=== PATIENT | female | born 1980 | race Caucasian/White ===

== ENCOUNTER → 2017-01-12 | Outpatient (CLI) | payer OTHER ==
[~2017-01-12] MED LIST: ASPI-390 PO; CZR50 PO; NAPR1TAB9 PO; OMEP40CA41 PO; ONDA8TAB13 SL; OPTIRAY 320 IV PRN; OXYC-57 PO
--- NOTE | 2017-01-12 09:11 | DIAGNOSTIC IMAGING REPORT ---
CT OF THE ABDOMEN WITH IV AND ORAL CONTRAST CT DOSE: 361.61 mGy.cm CLINICAL HISTORY: Abdominal pain. Gallbladder symptoms. Possible hiatal hernia. TECHNIQUE: Axial images of the abdomen were obtained following intravenous injection of 93 cc Optiray 320 IV. Oral contrast was ministered. COMPARISON STUDY: None. 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 No hiatal hernia is identified by CT. The liver, spleen, right adrenal gland and pancreas are normal. There is no biliary or pancreatic ductal dilatation. The gallbladder is not distended. A 2.4 cm low-attenuation nodule likely arises from the left adrenal gland. Less likely, this could reflect a left renal lesion. 2 water attenuation left renal lesions measure up to 1.8 cm and reflect cysts. There is mild right collecting system dilatation. No calculi are identified within visualized portions of the right ureter. The caliber of visualized portions of the right ureter is normal. There is a small fat-containing umbilical hernia. There is no abdominal lymphadenopathy or ascites. Caliber and wall thickness of visualized small and large bowel are normal. No suspicious skeletal lesions are identified. IMPRESSION: 1. No acute process within the abdomen. 2. Mild right collecting system dilatation. While nonspecific, this could reflect a mild UPJ type obstruction. No proximal right ureteral calculus. 3. Fat-containing Morgagni hernia. No hiatal hernia by CT. 4. 2.4 cm suspected left adrenal lesion. Less likely, this could reflect a renal lesion. This measures just above water attenuation. An adrenal adenoma is favored although this lesion is indeterminate and a follow-up adrenal protocol CT in 6 months is recommended. Electronically signed by: Akira Khanna M.D. 01/12/2017 9:09 AM Dictated Date/Time: 01/12/2017 9:00 AM
== END | disposition home or self-care (01) ==
LOC: C.CTS 07:56
PROVIDERS: ATTEND Physician Assistant
DX: R10.9 Unspecified abdominal pain (principal)

== ENCOUNTER → 2017-02-10 | Outpatient (CLI) | payer OTHER ==
[~2017-02-10] MED LIST changes: +FUROSEMIDE INJ 10 MG/ML 2 ML VIAL IV ONE; -OPTIRAY 320 IV PRN
--- NOTE | 2017-02-11 08:48 | DIAGNOSTIC IMAGING REPORT ---
RENAL SCAN DIURETIC (MAG 3) CLINICAL HISTORY: Hydronephrosis. COMPARISON STUDY: CT of the abdomen and January 12, 2017. TECHNIQUE: 7.4 mCi of technetium 99m MAG3 was injected IV at 12:08 PM on February 10, 2017. Immediately following injection, posterior imaging was performed to obtain flow images. Function curves were also obtained. 20 mg of Lasix was administered IV according to protocol. FINDINGS: Flow to both kidneys is symmetric. Split function was 55% left kidney and 45% right kidney. There is mild accumulation of radiotracer within the right renal pelvis. There is excretion into the right ureter prior to Lasix administration. There was no evidence of a mechanical obstruction. Time to half max for the left kidney was 11.7 minutes and time to half max for the right kidney was 14.9 minutes. IMPRESSION: 1. Split function of 55% left kidney and 45% right kidney. 2. Slightly patulous right collecting system without evidence for a significant obstruction. Electronically signed by: Akira Khanna M.D. 02/11/2017 8:47 AM Dictated Date/Time: 02/11/2017 8:42 AM
== END | disposition home or self-care (01) ==
LOC: C.NUCL 11:29
PROVIDERS: ATTEND Urology
DX: N13.30 Unspecified hydronephrosis (principal)

== ENCOUNTER 2017-02-24 14:55 | Emergency (ER) | payer OTHER ==
[~2017-02-24] VITALS: Ht 162.6 cm; Wt 75.2 kg
[~2017-02-24 14:55] MED LIST changes: -FUROSEMIDE INJ 10 MG/ML 2 ML VIAL IV ONE; -ONDA8TAB13 SL; -OXYC-57 PO
[2017-02-24 14:59] VITALS: TEMP 36.9; Ht 162.6 cm; Wt 75.2 kg
--- NOTE | 2017-02-24 15:56 | EMERGENCY ROOM VISIT NOTE ---
ED Visit Note First contact with patient: 15:09 CHIEF COMPLAINT: Left upper quadrant abdominal pain HISTORY OF PRESENT ILLNESS: This 37-year-old female patient presents to the emergency department with worsening abdominal pain over the last 2 weeks. Patient is regularly followed by general surgery as well as urology regarding several chronic issues and findings on abdominal imaging. Patient states over the last 2 weeks, she has been experiencing inability to eat, muscle aches, lethargy, redness under her eyes, and her mother feels that her skin may be turning yellow. Patient states she has been vomiting after eating food on occasion. She states this is worse when she eats meat, especially red meat, but states on occasion other things to make her feel ill. States she has routinely been able to drink Coke and iced tea, and did successfully eat 1/2 of an [place] muffin this morning without vomiting. She states she did experience nausea at that time. Patient states pains initiate in the left upper quadrant, under her left rib, and radiate around to the back in the same location. Patient states the pains are sharp and intense, and make her sick to her stomach. She states they last up to one hour to time. She rates pain 7/10. Patient states that one point last week she vomited chunks, and black leaves. She states on that day, she had eaten macaroni salad prior to the emesis. Patient is on Naprosyn 440 mg by mouth every 8 hours for pain related to thoracic outlet syndrome, and states she has been taking this medication regularly. Patient recently had a CT scan of her abdomen completed, as well as a nuclear scan of her kidneys. She states she last had an EGD performed "a few months ago". She states at that time she was told she had undigested food in her stomach, but denies ulcers or other abnormal findings on the scope. Patient denies diarrhea, but does report constipation, which she describes as having to push in order to move her bowels. She states she occasionally goes to to 3 days without having a bowel movement. This has not been an issue during this episode of worsening discomfort. Patient states she did call her surgeon, and was advised to seek care in the emergency department due to worsening symptoms. She states she was offered an appointment for 1 week, but felt that she was unable to wait. Symptoms have been progressively worsening over the past 2 weeks, however she states she was able to work today. as she is only experiencing severe pain intermittently. Patient denies fevers, chills, headache, dizziness, lightheadedness. REVIEW OF SYSTEMS: A 10-system review of systems was performed with positives and pertinent negatives listed in the history of present illness. All other systems were reviewed and are negative. ALLERGIES: Penicillin, varenicline MEDICATIONS: Excedrin Migraine, omeprazole, losartan, naproxen PMH: Headaches, GERD, hypertension, thoracic outlet syndrome, multiple GI disorders as outlined in HPI SOCIAL HISTORY: She lives locally with her family. She does admit to smoking approximately one pack per day and denies alcohol or drug use. PHYSICAL EXAM: VITALS: Vitals are noted on the nurse's note and reviewed by myself. Vital signs stable. GENERAL: 37-year-old female, in no acute distress, nondiaphoretic, well- developed well-nourished. HEAD - Normocephalic, atraumatic EYES - PERRL with EOMI bilaterally. Sclera anicteric. Palpebral conjunctiva pink and moist with no injection noted. EARS - No deformities of external structures noted on gross examination bilaterally. No pain elicited with palpation of the tragus bilaterally. External auditory canals without discharge or otorrhea. Tympanic membranes pearly watts without retraction or bulging. No fluid or purulent material visualized behind the TM. Handle of malleus, umbo, cone of light, pars tensa/ flaccid all easily visualized. NOSE - Midline and without cyanosis. No epistaxis or purulent drainage noted. Septum midline without deviation or septal hematoma noted. MOUTH/OROPHARYNX - Without perioral cyanosis. Buccal mucosa pink and moist and without leukoplakia. Tongue midline with equal elevation of palate bilaterally. No tonsillar hypertrophy, erythema, or exudates noted. good dentition noted. NECK - Neck with FROM. Supple to palpation. No nuchal rigidity. No lymphadenopathy LUNGS - Chest wall symmetric without accessory muscle use, intercostals retractions, or central cyanosis. Normal vesicular breath sounds CTA B/L. No wheezes, rales, or rhonchi appreciated. CARDIAC - RRR with S1/S2. No murmur, rubs, or gallops appreciated. ABDOMEN - Abdominal contour normal without pulsations or visible masses. Negative [place]'s or Silveira Hollis's Signs. BS normoactive all four quadrants. LUQ, LLQ tenderness to light and deep palpation appreciated. Pt. also c/o LLQ tenderness on palpation of the RLQ. mild guarding. no Rebound Tenderness. negative rovsing's. Negative Olvera's. No palpable masses, hepatosplenomegaly, or ascites noted. EXTREMITIES - No clubbing or peripheral cyanosis. No pretibial edema present. +3/5 radial and dorsalis pedis pulses palpated throughout. +5/5 strength noted in UE/LE bilaterally. SKIN - [place], warm, dry. No cyanosis or diaphoresis noted. No jaundice appreciated on examination. NEUROLOGIC - Cranial nerves II through XII grossly intact. Sensory intact to light touch throughout. PSYCH - A&Ox3 and cooperates fully with examiner. Pt is very pleasant and interacts well with examiner. RADIOLOGY Results: Pelvic ultrasound, reviewed by radiologist, indicated: Uterus: The uterus is normal in size and echotexture, measuring 7.9 x 3.9 x 5.3 cm. A calcified fundal fibroid is incidentally noted and measures up to 1.1 cm. A section scar is identified. Endometrium: The endometrium is normal in appearance, and the endometrial stripe is normal in thickness measuring up to 0.5 cm. Ovaries: The ovaries are normal in size and morphology. The right ovary measures 3.0 x 2.1 x 1.8 cm and the left ovary measures 4.6 x 3.0 x 2.9 cm. Small ovarian follicles are incidentally noted. Normal Doppler waveforms are shown within both ovaries. Pelvis: There is no free fluid in the cul-de-sac. No concerning adnexal lesion is seen. IMPRESSION: 1. No acute sonographic abnormality is identified in the pelvis. 2. Small calcified fundal fibroid. Retroperitoneal ultrasound, reviewed by radiologist, indicated: FINDINGS: Kidneys: The kidneys are normal in size and echotexture. The right kidney measures 12.5 x 4.2 x 5.2 cm and the left kidney measures 11.4 x 4.3 x 5.7 cm. An extrarenal pelvis is again seen on the right and there is fullness of the right renal collecting system. There is no definite hydronephrosis. No shadowing renal calculi are identified. There are 2 cysts identified in the left kidney measuring up to 1.8 cm. These were also seen by CT on 01/12/2017. There is no sonographic evidence of solid renal mass lesion. No perinephric fluid is identified. Bladder: The bladder is normal in appearance. Bilateral ureteral jets were seen. IMPRESSION: 1. The kidneys are normal in size and without hydronephrosis. Fullness of the right renal collecting system is similar to prior studies. 2. The bladder was normal as visualized. EMERGENCY DEPARTMENT COURSE: Initial labs ordered, patient placed on cardiac cath rn, and Pelvic and retroperitoneal US ordered with results reviewed by radiologist. Results of ultrasound as noted previously. CBC indicates slightly decreased RBC count, however, no anemia, leukocytosis, or thrombocytopenia noted. Urinalysis indicated slight red blood cells, however no obvious infection. Urine test negative. BMP without significant abnormalities. AST/ALT/lipase all negative for significant abnormality as well. Patient did have recent abdominal CT scan performed, as well as a nuclear study of kidneys within the past 1-2 months. Results were reviewed with patient by her specialists. I also reviewed the results of these studies in the Emergency Department today. Pt. states she did begin feeling slightly better after normal saline bolus of 500mg. Patient is pleased with normal results, however is frustrated with no answer for her discomfort at this time. Patient is pleased with her care in the emergency department, and states she will continue to follow up outpatient with her regular providers. Pt. states she does have an appointment scheduled for next with her surgeon. She was discharged home in good condition. DIAGNOSIS: Left upper quadrant abdominal pain, uterine fibroid DIFFERENTIAL DIAGNOSIS: Gastric ulcer, acute pancreatitis, acute cholecystitis, splenic process, Crohn's disease, irritable bowel syndrome, mesenteric ischemia , colitis, diverticulitis, malignancy, hydronephrosis, ovarian cyst, GI bleed, acute gastroenteritis, intestinal obstruction, and others DISCHARGE INSTRUCTIONS & TREATMENT: You have been treated in the Emergency Department your Abdominal Pain. Laboratory results and imaging studies have ruled out any emergent causes for your abdominal pain which would warrant admission or surgery. You have been prescribed Zofran to be used for any nausea or vomiting. Take as prescribed. For pain control, you can use the following ygrp-dym-ardpjpa medicines (if >12 yo): - Regular strength (325mg/tab) Tylenol (acetaminophen) 2 tabs every 4-6 hours as needed. Do not exceed 12 tablets in a 24 hour period. Avoid taking more than 4 grams (4000 mg) of Tylenol per day. This includes any other sources of acetaminophen you may take on a regular basis. - Regular strength (200 mg/tab) Advil (ibuprofen) 1-2 tabs every 4-6 hours as needed. Do not exceed a dose of 3200 mg per day. Drink plenty of water and stay well hydrated. I recommended an initial clear liquid diet due to constipation and worsening abdominal discomfort after eating. He should slowly add in soft foods after 1- 3 days of clear liquids. Consider MiraLAX, one capful daily if you continue to experience constipation. As with any trip to the Emergency Department, you should follow-up with your Primary Care Provider from today's visit. In addition, you should follow up with your general surgeon at your regularly scheduled appointment in 1 week for recheck of today's symptoms and further evaluation and workup. Return to the emergency department if your symptoms persist despite treatment plan outlined above or if the following symptoms occur: increased fevers, chills , worsening nausea/vomiting, blood in your stool or urine. Problem List Medical Problems: (1) Ankle sprain Status: Resolved (2) Dentalgia Status: Resolved (3) Essential (Primary) Hypertension Status: Chronic (4) Foot sprain Status: Resolved (5) Hiatal hernia Status: Chronic (6) Migraines Status: Chronic (7) Thumb tendonitis Status: Resolved (8) Thumb tendonitis Status: Resolved Current/Historical Medications Scheduled Losartan Potassium (Losartan Potassium), 50 MG PO DAILY Omeprazole (Prilosec), 40 MG PO DAILY Ondansetron Odt (Zofran Odt), 8 MG SL Q6H Scheduled PRN Vcgqpwb-Whyqnnvstwjdg-Hzsqvbrw (Excedrin Migraine), 1 TABLET PO UD PRN for Migraine Naproxen (Aleve), 440 MG PO Q8 PRN for Pain Allergies Coded Allergies: Varenicline (Verified Allergy, Unknown, UNKNOWN, 02/24/17) Penicillins (Verified Adverse Reaction, Unknown, HIVES, 02/24/17) Vital Signs Date Time Temp Pulse Resp B/P (MAP) Pulse Ox O2 Delivery O2 Flow Rate FiO2 02/24/17 19:04 84 16 142/90 99 02/24/17 17:25 84 16 140/101 98 02/24/17 14:59 36.9 110 18 148/79 100 Room Air Laboratory Results 02/24/17 15:40 Red Blood Count 4.00, Mean Corpuscular Volume 97.3, Mean Corpuscular Hemoglobin 31.5, Mean Corpuscular Hemoglobin Concent 32.4, Mean Platelet Volume 9.4, Neutrophils (%) (Auto) 60.9, Lymphocytes (%) (Auto) 32.0, Monocytes (%) (Auto) 5.6, Eosinophils (%) (Auto) 1.1, Basophils (%) (Auto) 0.3, Neutrophils # (Auto) 5.70, Lymphocytes # (Auto) 2.99, Monocytes # (Auto) 0.52, Eosinophils # (Auto) 0.10, Basophils # (Auto) 0.03 02/24/17 15:40 Test 02/24/17 00:00 02/24/17 15:29 02/24/17 15:40 Urine Color YELLOW Urine Appearance CLEAR (CLEAR) Urine pH 5.5 (4.5-7.5) Urine Specific [place] 1.022 (1.000-1.030) Urine Protein NEG (NEG) Urine Glucose (UA) NEG (NEG) Urine Ketones NEG (NEG) Urine Occult Blood 2+ (NEG) Urine Nitrite NEG (NEG) Urine Bilirubin NEG (NEG) Urine Urobilinogen NEG (NEG) Urine Leukocyte Esterase NEG (NEG) Urine WBC (Auto) 1-5 /hpf (0-5) Urine RBC (Auto) 10-30 /hpf (0-4) Urine Hyaline Casts (Auto) 1-5 /lpf (0-5) Urine Epithelial Cells (Auto) >30 /lpf (0-5) Urine Bacteria (Auto) 1+ (NEG) White Blood Count 9.35 K/uL (4.8-10.8) Red Blood Count 4.00 M/uL (4.2-5.4) Hemoglobin 12.6 g/dL (12.0-16.0) Hematocrit 38.9 % (37-47) Mean Corpuscular Volume 97.3 fL (80-100) Mean Corpuscular Hemoglobin 31.5 pg (25-34) Mean Corpuscular Hemoglobin Concent 32.4 g/dl (32-36) Platelet Count 257 K/uL (130-400) Mean Platelet Volume 9.4 fL (7.4-10.4) Neutrophils (%) (Auto) 60.9 % Lymphocytes (%) (Auto) 32.0 % Monocytes (%) (Auto) 5.6 % Eosinophils (%) (Auto) 1.1 % Basophils (%) (Auto) 0.3 % Neutrophils # (Auto) 5.70 K/uL (1.4-6.5) Lymphocytes # (Auto) 2.99 K/uL (1.2-3.4) Monocytes # (Auto) 0.52 K/uL (0.11-0.59) Eosinophils # (Auto) 0.10 K/uL (0-0.5) Basophils # (Auto) 0.03 K/uL (0-0.2) RDW Standard Deviation 46.1 fL (36.4-46.3) RDW Coefficient of Variation 12.9 % (11.5-14.5) Immature Granulocyte % (Auto) 0.1 % Immature Granulocyte # (Auto) 0.01 K/uL (0.00-0.02) Anion Gap 8.0 mmol/L (3-11) Est Creatinine Clear Calc Drug Dose 98.7 ml/min Estimated GFR () 114.5 Estimated GFR (Non- 98.8 BUN/Creatinine Ratio 7.5 (10-20) Calcium Level 9.3 mg/dl (8.5-10.1) Total Bilirubin 0.3 mg/dl (0.2-1) Direct Bilirubin < 0.1 mg/dl (0-0.2) Aspartate Amino Transf (AST/SGOT) 10 U/L (15-37) Alanine Aminotransferase (ALT/SGPT) 13 U/L (12-78) Alkaline Phosphatase 75 U/L (45-117) Total Protein 6.6 gm/dl (6.4-8.2) Albumin 3.9 gm/dl (3.4-5.0) Lipase 141 U/L (73-393) Medications Administered Medications (Trade) Dose Ordered Sig/Tristan Route Start Time Stop Time Status Last Admin Dose Admin Sodium Chloride 500 ml @ 999 mls/hr Q31M STAT IV 02/24/17 17:23 02/24/17 17:53 DC 02/24/17 17:41 999 MLS/HR Departure Information Impression Primary Impression: Abdominal pain Additional Impression: Uterine fibroid Dispostion Home / Self-Care Condition GOOD Prescriptions Ondansetron Odt (ZOFRAN ODT) 8 Mg Tab 8 MG SL Q6H for 10 Days, #40 TAB Prov: Sarah Torres PA-C 02/24/17 Referrals Matthew Zamudio M.D. (PCP) Patient Instructions ED Abdominal Pain Unkn Cause, [facility] Additional Instructions You have been treated in the Emergency Department your Abdominal Pain. Laboratory results and imaging studies have ruled out any emergent causes for your abdominal pain which would warrant admission or surgery. You have been prescribed Zofran to be used for any nausea or vomiting. Take as prescribed. For pain control, you can use the following wlae-ufc-alfnuty medicines (if >12 yo): - Regular strength (325mg/tab) Tylenol (acetaminophen) 2 tabs every 4-6 hours as needed. Do not exceed 12 tablets in a 24 hour period. Avoid taking more than 4 grams (4000 mg) of Tylenol per day. This includes any other sources of acetaminophen you may take on a regular basis. - Regular strength (200 mg/tab) Advil (ibuprofen) 1-2 tabs every 4-6 hours as needed. Do not exceed a dose of 3200 mg per day. Drink plenty of water and stay well hydrated. I recommended an initial clear liquid diet due to constipation and worsening abdominal discomfort after eating. He should slowly add in soft foods after 1- 3 days of clear liquids. Consider MiraLAX, one capful daily if you continue to experience constipation. As with any trip to the Emergency Department, you should follow-up with your Primary Care Provider from today's visit. In addition, you should follow up with your general surgeon at your regularly scheduled appointment in 1 week for recheck of today's symptoms and further evaluation and workup. Return to the emergency department if your symptoms persist despite treatment plan outlined above or if the following symptoms occur: increased fevers, chills , worsening nausea/vomiting, blood in your stool or urine. Problem Qualifiers Primary Impression: Abdominal pain Abdominal location: left upper quadrant Qualified Codes: R10.12 - Left upper quadrant pain Additional Impression: Uterine fibroid Uterine leiomyoma location: unspecified location Qualified Codes: D25.9 - Leiomyoma of uterus, unspecified
[2017-02-24 15:58] LABS: URINE APPEARANCE CLEAR (CLEAR); URINE BILIRUBIN NEG (NEG); URINE COLOR YELLOW; URINE EPITHELIAL CELL AUTO >30 /lpf (0-5); URINE NITRITE NEG (NEG); URINE PH 5.5 (4.5-7.5); URINE SPECIFIC GRAVITY 1.022 (1.000-1.030); UROBILINOGEN NEG (NEG); ZZUR CULT IF INDIC CLEAN CATCH YES
[2017-02-24 15:58] LABS: BASO % 0.3 %; BASO ABS # 0.03 K/uL (0-0.2); COMPLETE YES; EOS % 1.1 %; HEMATOCRIT 38.9 % (37-47); IG% 0.1 %; LYMPH ABS # 2.99 K/uL (1.2-3.4); MEAN CELL VOLUME 97.3 fL (80-100); MEAN CORPUSCULAR HEMOGLOBIN 31.5 pg (25-34); MEAN CORPUSCULAR HGB CONC 32.4 g/dl (32-36); MEAN PLATELET VOLUME 9.4 fL (7.4-10.4); MONO % 5.6 %; NEUT % 60.9 %; PLATELET COUNT 257 K/uL (130-400); WHITE BLOOD COUNT 9.35 K/uL (4.8-10.8)
[2017-02-24 16:00] LABS: MANUAL MICROSCOPIC REQUIRED? NO; REVIEW REQ? NO
[2017-02-24 16:31] LABS: ALT/SGPT 13 U/L (12-78); BLOOD UREA NITROGEN 6 mg/dl (7-18); BUN/CREATININE RATIO 7.5 (10-20); CALCIUM 9.3 mg/dl (8.5-10.1); CARBON DIOXIDE 25 mmol/L (21-32); CHLORIDE 107 mmol/L (98-107); CREATININE 0.76 mg/dl (0.60-1.20); GLUCOSE 83 mg/dl (70-99); POTASSIUM 3.6 mmol/L (3.5-5.1); SODIUM 140 mmol/L (136-145)
[2017-02-24 16:34] LABS: ALKALINE PHOSPHATASE 75 U/L (45-117); AST/SGOT 10 U/L (15-37)
[2017-02-24] MEDS ORDERED: SODIUM CHLORIDE 0.9% 500ML 500 ML IV STA (17:23)
--- NOTE | 2017-02-24 17:26 | DIAGNOSTIC IMAGING REPORT ---
ULTRASOUND KIDNEYS AND BLADDER CLINICAL HISTORY: Left flank pain. COMPARISON STUDY: Abdominal CT dated 01/12/2017. Nuclear renal scan dated 02/10/2017. TECHNIQUE: Real-time, grayscale, and color flow sonography of the kidneys and bladder is performed. Images are reviewed in the transverse and longitudinal planes. FINDINGS: Kidneys: The kidneys are normal in size and echotexture. The right kidney measures 12.5 x 4.2 x 5.2 cm and the left kidney measures 11.4 x 4.3 x 5.7 cm. An extrarenal pelvis is again seen on the right and there is fullness of the right renal collecting system. There is no definite hydronephrosis. No shadowing renal calculi are identified. There are 2 cysts identified in the left kidney measuring up to 1.8 cm. These were also seen by CT on 01/12/2017. There is no sonographic evidence of solid renal mass lesion. No perinephric fluid is identified. Bladder: The bladder is normal in appearance. Bilateral ureteral jets were seen. IMPRESSION: 1. The kidneys are normal in size and without hydronephrosis. Fullness of the right renal collecting system is similar to prior studies. 2. The bladder was normal as visualized. Electronically signed by: Rohan Torrez M.D. 02/24/2017 5:24 PM Dictated Date/Time: 02/24/2017 5:21 PM
--- NOTE | 2017-02-24 17:30 | DIAGNOSTIC IMAGING REPORT ---
ULTRASOUND OF THE PELVIS CLINICAL HISTORY: Left pelvic pain. COMPARISON STUDY: Pelvic ultrasound dated 03/01/2013. Pelvic CT dated 01/12/2017. TECHNIQUE: Real-time, grayscale, and color flow sonography of the pelvis is performed both transabdominally and endovaginally. Images are reviewed in the transverse and longitudinal planes. FINDINGS: Uterus: The uterus is normal in size and echotexture, measuring 7.9 x 3.9 x 5.3 cm. A calcified fundal fibroid is incidentally noted and measures up to 1.1 cm. A section scar is identified. Endometrium: The endometrium is normal in appearance, and the endometrial stripe is normal in thickness measuring up to 0.5 cm. Ovaries: The ovaries are normal in size and morphology. The right ovary measures 3.0 x 2.1 x 1.8 cm and the left ovary measures 4.6 x 3.0 x 2.9 cm. Small ovarian follicles are incidentally noted. Normal Doppler waveforms are shown within both ovaries. Pelvis: There is no free fluid in the cul-de-sac. No concerning adnexal lesion is seen. IMPRESSION: 1. No acute sonographic abnormality is identified in the pelvis. 2. Small calcified fundal fibroid. Electronically signed by: Rohan Torrez M.D. 02/24/2017 5:29 PM Dictated Date/Time: 02/24/2017 5:27 PM
[2017-02-24] MEDS ORDERED: ONDA8TAB13 SL (18:50)
[2017-02-24 19:04] VITALS: BP 142/90; PULSE 84; O2SAT 99
== END 2017-02-24 19:10 | disposition home or self-care (01) ==
LOC: C.EDB 14:56
DX: R10.12 Left upper quadrant pain (principal); D25.9 Leiomyoma of uterus, unspecified; K21.9 Gastro-esophageal reflux disease without esophagitis; I10 Essential (primary) hypertension; G54.0 Brachial plexus disorders; K92.9 Disease of digestive system, unspecified; Z79.899 Other long term (current) drug therapy

== ENCOUNTER 2017-03-15 06:49 | Observation (INO) | payer OTHER ==
[2017-03-04 09:06] VITALS: BMI 28.0
--- NOTE | 2017-03-04 09:52 | PAT Medication Instructions ---
Service Date Mar 04, 2017. Current Home Medication List Teubvzs-Jmajedkjpzrno-Cjjwopfb (Excedrin Migraine), 1 TABLET PO QAM PRN for Migraine Losartan Potassium (Losartan Potassium), 50 MG PO QAM Omeprazole (Prilosec), 40 MG PO QAM Ondansetron Odt (Zofran Odt), 8 MG SL Q6H Medication Instructions For Your Scheduled Surgery - Hold the following medications the morning of surgery: Losartan Potassium (Losartan Potassium), 50 MG PO QAM Hcezpib-Zacjongtatmvx-Cjaldbja (Excedrin Migraine), 1 TABLET PO QAM PRN for Migraine (otherwise okay to continue per surgeon) - Take the following medications the morning of surgery with a sip of water OTHERWISE NOTHING TO EAT OR DRINK AFTER MIDNIGHT: Ondansetron Odt (Zofran Odt), 8 MG SL Q6H Omeprazole (Prilosec), 40 MG PO QAM - Take the following medications as scheduled the night before surgery: Ondansetron Odt (Zofran Odt), 8 MG SL Q6H If you have any questions please call us at [phone] or [phone] or [phone]
--- NOTE | 2017-03-04 10:23 | DIAGNOSTIC IMAGING REPORT ---
CHEST PREADMISSION(PA/LAT) CLINICAL HISTORY: Preoperative evaluation. COMPARISON STUDY: No previous studies for comparison. FINDINGS: Lung volumes are normal. There is no consolidation to suggest pneumonia. A density at the right cardiophrenic angle was shown to represent a Morgagni hernia on CT of January 12, 2017. There is no evidence of pulmonary edema. There is no pneumothorax or pleural effusion. Cardiomediastinal silhouette is normal. IMPRESSION: 1. No acute cardiopulmonary findings. 2. Right cardiophrenic angle density which was shown to represent a Morgagni hernia on CT of January 12, 2017. Electronically signed by: Akira Khanna M.D. 03/04/2017 10:22 AM Dictated Date/Time: 03/04/2017 10:19 AM
[2017-03-15] VITALS (8 sets, daily range): BP systolic 103–133; BP diastolic 65–87; PULSE 70–90; TEMP 36.5–37; O2SAT 96–100; Ht 162.6 cm; Wt 74.4 kg
[~2017-03-15] VITALS: Ht 162.6 cm; Wt 74.4 kg
[~2017-03-15 06:49] MED LIST changes: +LACTATED RINGER'S 1000ML 1,000 ML IV SCH; -NAPR1TAB9 PO
[2017-03-15] MEDS ORDERED: PROPOFOL IV EMULSION 10 MG/ML 20 ML VIAL IV ONE (07:19)
[2017-03-15] MEDS ORDERED: DEXAMETHASONE SOD INJ 4 MG/ML VIAL ONE (07:19)
[2017-03-15] MEDS ORDERED: LIDOCAINE HCL 2% 2 ML VIAL (20MG/ML) ONE (07:19)
[2017-03-15] MEDS ORDERED: ONDANSETRON INJ 2 MG/ML 2 ML VIAL ONE ×2 (07:19→08:21)
[2017-03-15] MEDS ORDERED: ROCURONIUM BROMIDE 10 MG/ML 5 ML VIAL ONE (07:19)
[2017-03-15] MEDS ORDERED: FENTANYL CITRATE INJ 50 MCG/1 ML 2 ML VIAL ONE ×3 (07:19→09:00)
[2017-03-15] MEDS ORDERED: GLYCOPYRROLATE INJ 0.2 MG/ML VIAL ONE (07:19)
[2017-03-15] MEDS ORDERED: NEOSTIGMINE METHYLSULFATE 5 MG/5 ML SYR ONE (07:19)
[2017-03-15] MEDS ORDERED: MIDAZOLAM HCL 1 MG/ML 2ML VIAL ONE (07:19)
--- NOTE | 2017-03-15 07:38 | History & Physical Bridge Note ---
H&P Re-Evaluation Bridge Note: I have examined the patient, reviewed the History & Physical and in the interval since the performance of the History & Physical I have noted the following changes of clinical significance: No changes noted SO at bedside
[2017-03-15] MEDS ORDERED: BACITRACIN 50000 UNIT VIAL ONE (07:51)
[2017-03-15] MEDS ORDERED: BUPIVACAINE 0.5 % 5 MG/1 ML MPF 30ML VIAL ONE (07:51)
[2017-03-15] MEDS ORDERED: LIDOCAINE/EPINEPHRINE 1% 20 ML VIAL ONE (07:52)
[2017-03-15] MEDS ORDERED: CONRAY 60% 50 ML VIAL ONE (07:52)
[2017-03-15] MEDS ORDERED: MEPERIDINE HCL 25 MG/ML CARP IV PRN (08:00)
[2017-03-15] MEDS ORDERED: EpHEDrine SULFATE INJ 50 MG/ML AMP IV PRN (08:00)
[2017-03-15] MEDS ORDERED: LABETALOL HCL IV 5 MG/ML 20ML IV PRN (08:00)
[2017-03-15] MEDS ORDERED: ONDANSETRON INJ 2 MG/ML 2 ML VIAL IV PRN ×2 (08:00→11:00)
[2017-03-15] MEDS ORDERED: ATROPINE SULFATE 0.1 MG/ML 5ML SYR IV PRN (08:00)
[2017-03-15] MEDS ORDERED: METOCLOPRAMIDE HCL INJ 5 MG/ML 2 ML VIAL ONE (08:21)
[2017-03-15] MEDS ORDERED: DiphenhydrAMINE HCL 50 MG/ML VIAL ONE (08:21)
[2017-03-15] MEDS ORDERED: MINERAL OIL LIGHT 10 ML BTL ONE (08:33)
[2017-03-15] MEDS ORDERED: HYDROmorphone INJ 2 MG/ML SYR/VIAL ONE (09:42)
[2017-03-15] MEDS ORDERED: ESMOLOL HCL 10 MG/ML 10 ML VIAL ONE (09:47)
[2017-03-15] MEDS ORDERED: MoRPHine SULFATE 4 MG/ML 1 ML CARP\\VIAL IV PRN (11:00)
[2017-03-15] MEDS ORDERED: OXYCODONE/ACETAMINOPHEN 5-325 TAB PO PRN (11:00)
[2017-03-15] MEDS ORDERED: OXYC-57 PO (11:01)
--- NOTE | 2017-03-15 11:03 | Discharge Instructions ---
Discharge Instructions Date of Service Mar 15, 2017. Admission Reason for Admission: Incarcerated Right Hernia Of Morgagnl, Abd Pain Discharge Discharge Diagnosis / Problem: laparoscopic cholecystectomy, repair of hernia Discharge Goals Goal(s): Decrease discomfort Activity Recommendations Activity Limitations: as noted below Lifting Limitations: no more than 10 pounds Shower/Bathe: no limitations (ok to shower) Driving or Machine Use: resume 3 days after discharge (if not taking Percocet) . Instructions / Follow-Up Instructions / Follow-Up Dr. Zamudio in 1 week, call [phone] if you need to schedule or have any questions Current Hospital Diet Patient's current hospital diet: Clear Liquid Diet Discharge Diet Recommended Diet: Regular Diet Procedures Procedures Performed: Laparoscopic Cholecystectomy with attempt of cholangiogram, Laparoscopic Repair with 12cm mesh of Incarcerated Right Morgagni Hernia Pending Studies Studies pending at discharge: no Medical Emergencies . Who to Call and When: Medical Emergencies: If at any time you feel your situation is an emergency, please call 911 immediately. . Non-Emergent Contact Non-Emergency issues call your: Surgeon Call Non-Emergent contact if: you have a fever, temperature is above 101.5, your pain is not controlled, wound has increased redness, you have any medication questions . "Provider Documentation" section prepared by Jorge L Quesada. . VTE Core Measure Inpt VTE Proph given/why not?: SCD's [place] Drug Monitoring Program Search Results: no issues identified
--- NOTE | 2017-03-15 11:04 | [facility] Operative Report ---
Operative Report Operative Date Mar 15, 2017. Pre-Operative Diagnosis Biliary dyskinesia and Morgagni hernia Post-Operative Diagnosis Biliary dyskinesia and Morgagni hernia(app6-7 cm diameter) Procedure(s) Performed Laparoscopic Cholecystectomy with attempt of cholangiogram, Laparoscopic Repair with 12cm Surgimesh Right Morgagni Hernia Surgeon Dr Matthew Zamudio Compensation Consultant Surgeon(s) Jorge L Quesada PA-C Estimated Blood Loss 30ml Findings aixa 7 cm Morgagni hernia(pictures taken) contents omentum that spontaneously reduced once pt placed in reverse Trendelenburg , chronic cholecystitis Specimens A. Gallbladder B. Hernia Sac Disposition Recovery Room / PACU Indications ruq pain with certain foods, and fullness epigastric area Description of Procedure general anesthesia open entry umbilical area with 5 mm trocar, scope followed, easily seen Morgagni hernia with omentum once pt placed in slight reverse T- zackary hernia contents reduced , 10mm luq port and 5 mm ruq post hernia sac removed with Harmonic scapel ,hernia diameter completed aixa 7 cm , used 12 cm surgimesh to close tension free defect with protac and suture inferiorly and towards pericardium with 2-0 silk and ant with 2-0 prolene repair completed and tension free, lap cholecystectomy performed in antigrade fashion, attempted c'gram but duct very small cath removed and cystic duct and artery doubly clipped and divided oozing liver bed controlled with cautery gallbladder and hernia sac removed with endo pouch 0 vicryl closure of luq post site and umbilical area procedure tolerated well ebl aixa 30cc rec room stable I attest to the content of the Intraoperative Record and any orders documented therein. Any exceptions are noted below.
[2017-03-15] MEDS: FENTANYL CITRATE INJ 50 MCG/1 ML 2 ML VIAL IV PRN ×2 (11:18→11:38)
[2017-03-15] MEDS: HYDROmorphone INJ 1 MG/ML SYR IV PRN ×5 (11:44→23:52)
--- NOTE | 2017-03-15 11:58 | DIAGNOSTIC IMAGING REPORT ---
CHEST ONE VIEW PORTABLE CLINICAL HISTORY: post op dyspnea COMPARISON STUDY: 03/04/2017 FINDINGS: Extensive bilateral subcutaneous emphysema. No evidence pneumothorax. Lungs are considered clear. Possible small pneumomediastinum. IMPRESSION: 1. Extensive subcutaneous emphysema throughout the hemithoraces bilaterally. 2. Trace pneumomediastinum. 3. Lungs are clear. 4. No evidence pneumothorax. Electronically signed by: Galen Stern M.D. 03/15/2017 11:57 AM Dictated Date/Time: 03/15/2017 11:56 AM
[2017-03-15] MEDS ORDERED: IV FLUIDS COMPLETED PRN (12:15)
--- NOTE | 2017-03-15 12:31 | Anesthesiology Progress Note ---
Anesthesia Post Op Note Date & Time Mar 15, 2017 at 12:31 Vital Signs Pain Intensity: 4 Vital Signs Past 12 Hours Date Time Temp Pulse Resp B/P (MAP) Pulse Ox O2 Delivery O2 Flow Rate FiO2 03/15/17 12:15 36.1 87 17 121/79 98 Nasal Cannula 2 03/15/17 12:05 87 17 121/79 98 Mask 5 03/15/17 11:55 87 17 121/79 98 Mask 5 03/15/17 11:45 88 15 124/76 100 Mask 6 03/15/17 11:35 92 17 138/74 100 Mask 8 03/15/17 11:25 108 24 149/82 100 Mask 10 03/15/17 11:21 140/79 03/15/17 11:15 108 16 100 Mask 10 03/15/17 11:05 36.0 87 18 90/53 (60) 97 Mask 10 03/15/17 07:38 36.7 78 18 103/76 (85) 100 Room Air Notes Mental Status: alert / awake / arousable, participated in evaluation Pt Amnestic to Procedure: Yes Nausea / Vomiting: adequately controlled Pain: adequately controlled Airway Patency, RR, SpO2: stable & adequate BP & HR: stable & adequate Hydration State: stable & adequate Anesthetic Complications: no major complications apparent
[2017-03-15] MEDS ORDERED: KETOROLAC TROMETHAMINE 30 MG/ML VIAL IV PRN (14:00)
[2017-03-15] MEDS: LACTATED RINGER'S 1000ML 1,000 ML IV SCH ×2 (14:16→23:51)
[2017-03-15] MEDS: OXYCODONE/ACETAMINOPHEN 5-325 TAB PO PRN (14:17)
[2017-03-15] MEDS: NICOTINE 14 MG/24 HR TDSY TD SCH (18:15)
[2017-03-16 03:19] VITALS: BP 110/71; PULSE 86; TEMP 36.8; O2SAT 95
[2017-03-16] MEDS: OXYCODONE/ACETAMINOPHEN 5-325 TAB PO PRN ×2 (05:05→09:12)
--- NOTE | 2017-03-16 06:47 | Surgery Progress Note ---
Surgery Progress Note Date of Service Mar 16, 2017. Subjective Post OP Day: 1 fells well expected discomfort from tacking sutures, tolerated liquid diet without nausea first time in months wants to go home Objective Vital Signs: Date Time Temp Pulse Resp B/P (MAP) Pulse Ox O2 Delivery O2 Flow Rate FiO2 03/16/17 03:19 36.8 86 14 110/71 (84) 95 Room Air 03/15/17 23:45 Room Air 03/15/17 23:36 36.8 81 15 133/82 (99) 97 Room Air 03/15/17 20:00 37.0 70 16 132/87 (102) 97 Room Air 03/15/17 15:45 36.6 83 16 112/74 (87) 99 Nasal Cannula 2.0 03/15/17 15:10 Nasal Cannula 2.0 03/15/17 14:46 36.6 73 16 105/65 (78) 99 2.0 03/15/17 13:45 90 16 128/72 (90) 100 2.0 03/15/17 13:15 90 16 119/77 (91) 100 2.0 03/15/17 12:45 96 Nasal Cannula 2.0 03/15/17 12:45 36.5 78 14 118/77 (91) 96 2.0 03/15/17 12:45 96 Nasal Cannula 2.0 03/15/17 12:30 69 17 109/80 98 Nasal Cannula 2 03/15/17 12:15 36.1 87 17 121/79 98 Nasal Cannula 2 03/15/17 12:05 87 17 121/79 98 Mask 5 03/15/17 11:55 87 17 121/79 98 Mask 5 03/15/17 11:45 88 15 124/76 100 Mask 6 03/15/17 11:35 92 17 138/74 100 Mask 8 03/15/17 11:25 108 24 149/82 100 Mask 10 03/15/17 11:21 140/79 03/15/17 11:15 108 16 100 Mask 10 03/15/17 11:05 36.0 87 18 90/53 (60) 97 Mask 10 03/15/17 07:38 36.7 78 18 103/76 (85) 100 Room Air Abdomen: + pertinent finding (dressing dry, abd neg no sub cut air) Assessment & Plan increase diet d/c today instructions given
[2017-03-16 07:01] VITALS: BP 127/75; PULSE 91; TEMP 37; O2SAT 96
--- NOTE | 2017-03-16 07:30 | Anesthesiology Progress Note ---
Anesthesia Post Op Note Date & Time Mar 16, 2017 at 07:29 Vital Signs Vital Signs Past 12 Hours Date Time Temp Pulse Resp B/P (MAP) Pulse Ox O2 Delivery O2 Flow Rate FiO2 03/16/17 07:01 37.0 91 19 127/75 (92) 96 Room Air 03/16/17 03:19 36.8 86 14 110/71 (84) 95 Room Air 03/15/17 23:45 Room Air 03/15/17 23:36 36.8 81 15 133/82 (99) 97 Room Air 03/15/17 20:00 37.0 70 16 132/87 (102) 97 Room Air Notes Mental Status: alert / awake / arousable, participated in evaluation Pt Amnestic to Procedure: Yes Nausea / Vomiting: adequately controlled Pain: adequately controlled Airway Patency, RR, SpO2: stable & adequate BP & HR: stable & adequate Hydration State: stable & adequate Anesthetic Complications: no major complications apparent
[2017-03-16 07:52] VITALS: BP 128/78; PULSE 80; TEMP 36.7; O2SAT 95
[2017-03-16 07:55] VITALS: O2SAT 95
[2017-03-16] MEDS: NICOTINE 14 MG/24 HR TDSY TD SCH (08:45)
[2017-03-16] MEDS: LACTATED RINGER'S 1000ML 1,000 ML IV SCH (08:45)
[2017-03-16] MEDS ORDERED: LOSARTAN POTASSIUM 50 MG TAB PO SCH (09:00)
[2017-03-16] MEDS ORDERED: PANTOprazole SOD 40 MG TAB PO SCH (09:00)
[2017-03-16 09:13] VITALS: BP 128/78; PULSE 80; TEMP 36.7; O2SAT 95
--- NOTE | 2017-03-16 11:00 | Discharge Summary ---
Discharge Summary Date of Service Mar 16, 2017. Admission Date/Reason Mar 15, 2017 at 07:30 Morgagni Hernia. Discharge Date/Disposition Mar 16, 2017 Home Diagnosis Principal Diagnosis: 1. Morgagni hernia 2. Biliary dyskinesia Procedure(s) Performed Laparoscopic repair Right Morgagni Hernia, laparoscopic Cholecystectomy with attempt of cholangiogram Medication Reconciliation New Medications: Oxycodone/Acetaminophen 5MG/325MG (Percocet 5MG/325MG) Tab 1-2 TABLETS PO Q4H PRN for Pain, #30 TAB Continued Medications: Xvdawce-Ctreoqhrtsmyt-Yomkewqg (Excedrin Migraine) 1 Tab Tab 1 TABLET PO QAM PRN for Migraine Losartan Potassium (Losartan Potassium) 50 Mg Tab 50 MG PO QAM Omeprazole (Prilosec) 40 Mg Cap 40 MG PO QAM TAKE THIS MEDICATION ONCE DAILY ONE HOUR BEFORE FIRST MEAL OF THE DAY. Admission Physical Exam As per Admitting History & Physical. Hospital Course 37 y/o female with right Morgagni hernia and biliary dyskinesia brought in for laparoscopic hernia repair and cholecystectomy. The procedures were well tolerated and she was transferred to the surgical floor for observation. She did not have any problems overnight and by the next morning her pain was better controlled and she was tolerating a regular diet. Her abdomen was soft and incisions were dry. She was stable for discharge. Discharge Instructions Follow-up in [address] Zamudio Please refer to the electronic Patient Visit Report (Discharge Instructions) for additional information.
== END 2017-03-16 09:46 | disposition home or self-care (01) ==
LOC: C.ACU 06:49 → C.MSN 07:30 → ENRESERV 12:13 → CMPBEDREQ 13:20
PROVIDERS: ADMIT Surgery; ATTEND Surgery
DX: K82.8 Other specified diseases of gallbladder (principal); K44.9 Diaphragmatic hernia without obstruction or gangrene; I10 Essential (primary) hypertension; K21.9 Gastro-esophageal reflux disease without esophagitis; F32.9 Major depressive disorder, single episode, unspecified; Z79.899 Other long term (current) drug therapy